=== PATIENT | male | born 1955 | race Caucasian/White ===

== ENCOUNTER 2017-05-30 05:10 | Inpatient (IN) | payer OTHER ==
--- NOTE | 2017-05-05 12:59 | PAT Medication Instructions ---
Service Date May 05, 2017. Current Home Medication List Aspirin (Aspir-Low), 81 MG PO QAM Atorvastatin (Lipitor), 80 MG PO QAM Duloxetine Hcl (Cymbalta), 2 TAB PO QAM Ferrous Sulfate (Iron (Ferrous Sulfate)), Unknown Dose HS Magnesium Oxide (Mag-Ox), Unknown Dose PO HS Metformin Hcl (Glucophage), 1,000 MG PO QAM Metformin Hcl (Glucophage), 500 MG PO QPM Metoprolol Succinate (Toprol Xl), 50 MG PO BID Morphine Cont Rel (Ms Contin), 15 MG PO Q12 Morphine Sulfate Ir (Morphine Sulfate Ir), 15 MG PO Q12H PRN for N Multiple Vitamin (Multivitamin), 1 TAB PO QAM Nitroglycerin (Nitrostat), 0.4 MG UT PRN Pioglitazone (Actos), 45 MG PO QAM Sitagliptin Phosphate (Januvia), 100 MG PO QAM Trandolapril (Mavik), 2 MG PO HS Medication Instructions For Your Scheduled Surgery - Hold the following medications 48 hours prior to surgery: Metformin Hcl (Glucophage), 1,000 MG PO QAM Metformin Hcl (Glucophage), 500 MG PO QPM - Hold the following medications the morning of surgery: Sitagliptin Phosphate (Januvia), 100 MG PO QAM Pioglitazone (Actos), 45 MG PO QAM Multiple Vitamin (Multivitamin), 1 TAB PO QAM - Take the following medications the morning of surgery with a sip of water: Nitroglycerin (Nitrostat), 0.4 MG UT PRN (if needed) Morphine Cont Rel (Ms Contin), 15 MG PO Q12 (okay to take up to 4 hours prior to surgery if needed) Morphine Sulfate Ir (Morphine Sulfate Ir), 15 MG PO Q12H PRN for N (okay to take up to 4 hours prior to surgery if needed) Metoprolol Succinate (Toprol Xl), 50 MG PO BID Duloxetine Hcl (Cymbalta), 2 TAB PO QAM Aspirin (Aspir-Low), 81 MG PO QAM Atorvastatin (Lipitor), 80 MG PO QAM - Hold the following medications as scheduled the night before surgery: Trandolapril (Mavik), 2 MG PO HS - Take the following medications as scheduled the night before surgery: Nitroglycerin (Nitrostat), 0.4 MG UT PRN (if needed) Morphine Cont Rel (Ms Contin), 15 MG PO Q12 (if needed) Morphine Sulfate Ir (Morphine Sulfate Ir), 15 MG PO Q12H PRN for N (if needed) Metoprolol Succinate (Toprol Xl), 50 MG PO BID Ferrous Sulfate (Iron (Ferrous Sulfate)), Unknown Dose HS Magnesium Oxide (Mag-Ox), Unknown Dose PO HS If you have any questions please call us at [phone] or [phone] or [phone]
[2017-05-05 13:49] LABS: BASO % 0.6 %; BASO ABS # 0.03 K/uL (0-0.2); COMPLETE YES; EOS % 10.6 %; LYMPH % 28.6 %; LYMPH ABS # 1.54 K/uL (1.2-3.4); MEAN CELL VOLUME 86.7 fL (80-100); MEAN CORPUSCULAR HEMOGLOBIN 27.2 pg (25-34); MEAN CORPUSCULAR HGB CONC 31.4 g/dl (32-36); MEAN PLATELET VOLUME 9.5 fL (7.4-10.4); MONO % 9.1 %; NEUT % 51.1 %; PLATELET COUNT 223 K/uL (130-400); RED BLOOD COUNT 4.15 M/uL (4.7-6.1); WHITE BLOOD COUNT 5.39 K/uL (4.8-10.8)
[2017-05-05 13:58] LABS: INR 1.1 (0.9-1.1); PROTHROMBIN TIME (PATIENT) 11.4 SECONDS (9.0-12.0)
[2017-05-05 14:06] LABS: URINE APPEARANCE CLEAR (CLEAR); URINE BILIRUBIN NEG (NEG); URINE COLOR DK YELLOW; URINE NITRITE NEG (NEG); URINE SPECIFIC GRAVITY 1.027 (1.000-1.030); UROBILINOGEN NEG (NEG)
[2017-05-05 14:11] LABS: MANUAL MICROSCOPIC REQUIRED? NO; REVIEW REQ? NO
[2017-05-05 14:58] LABS: BUN/CREATININE RATIO 21.3 (10-20); CALCIUM 9.3 mg/dl (8.5-10.1); CREATININE 1.1 mg/dl (0.60-1.40); POTASSIUM 5.5 mmol/L (3.5-5.1)
--- NOTE | 2017-05-29 09:17 | HISTORY & PHYSICAL EXAMINATION ---
DATE OF ADMISSION: 05/30/2017 CHIEF COMPLAINT: Primary osteoarthritis of the left hip. HISTORY OF PRESENT ILLNESS: Robert is a pleasant 62-year-old male who has been complaining of chronic left hip pain. X-rays and clinical examination were diagnostic for primary osteoarthritis of the left hip. He has already had a right total hip arthroplasty done in the past and has done well with that. After failing extensive conservative treatment with the left hip, he has elected to proceed with a left total hip arthroplasty. PAST MEDICAL HISTORY: Significant for heart disease with an [place] in 11/1999. He has problems with the heart valve, hyperlipidemia, heart palpitations, anxiety, [id number] diabetes, chronic pain management. SURGICAL HISTORY: Significant for surgery to his right foot, left total knee arthroplasty, heart bypass surgery x5, knee arthroscopy and a right total hip arthroplasty. ALLERGIES: None. FAMILY HISTORY: Noncontributory. SOCIAL HISTORY: He is once and remarried. He has 2 kids. Never drinks. He is mildly active. REVIEW OF SYSTEMS: He complains of right hip pain. All other pertinent review of systems are negative. MEDICATIONS: Include aspirin 81 mg daily, Lipitor 80 mg daily, Cymbalta 60 mg 2 tabs daily, iron 325 mg at night, magnesium oxide at night, Glucophage 500 mg at night and Glucophage 1000 mg in the morning, Toprol 50 mg twice a day, MS Contin 15 mg q. 12 hours, morphine IR 15 mg as needed, daily multivitamin, Nitrostat 0.4 mg as needed, Actos 45 mg in the morning, Januvia 100 mg daily and Mavik 2 mg at night. PHYSICAL EXAMINATION: GENERAL: He is awake, alert and oriented x3. He is in no apparent distress. He is very pleasant. HEART: Regular rate per radial pulse. LUNGS: Zahida symmetrically bilaterally with no audible breath sounds. ABDOMEN: Soft, nontender, nondistended. MUSCULOSKELETAL: On physical examination of his hip, he walks with an antalgic gait. Can forward flex to 90 degrees but he has decreased motion with internal and external rotation. He has reproducible groin pain, especially with forced internal rotation of the hip. He is otherwise neurovascularly intact. His leg lengths are essentially equal. IMAGING DATA: X-rays of the pelvis do show a well-placed right total hip arthroplasty and advanced osteoarthritis of the left hip. There is joint space narrowing and osteophyte formation. IMPRESSION: Primary osteoarthritis of the left hip. PLAN: We will proceed with an anterior left total hip arthroplasty. Postoperatively, he will be kept in the hospital for postop medical management. We will use aspirin 325 mg twice a day for DVT prophylaxis and morphine for pain control.
[2017-05-30] VITALS (11 sets, daily range): BP systolic 81–144; BP diastolic 27–80; PULSE 49–66; TEMP 36.4–36.6; O2SAT 96–99; Ht 175.3 cm; Wt 92.2 kg
[~2017-05-30] VITALS: Ht 175.3 cm; Wt 92.2 kg
[~2017-05-30 05:10] MED LIST: ACT30 PO; ASPI81TA25 PO; ATOR-26 PO; DULO60CA44 PO; FERR50TA3; GLC/500 PO; MAGN400T6 PO; METO1TAB66 PO; MORP15TA PO; MORP15TA19 PO; MULTTAB58 PO; NITR0.4S UT; SITA100T3 PO; TRAN4TAB PO
[2017-05-30] MEDS ORDERED: CEFAZOLIN 2000 MG/60 ML D5W 60 ML IV SCH (06:00)
[2017-05-30] MEDS ORDERED: GABAPENTIN 300 MG CAP PO SCH (06:00)
[2017-05-30] MEDS ORDERED: ACETAMINOPHEN 500 MG TAB PO SCH (06:00)
[2017-05-30] MEDS ORDERED: ROPIVACAINE 5MG/ML 30 ML 150 MG, BUPIVACAINE/EPINEPHR 0.5% MPF 30 ML, KETOROLAC TROMETH... INFIL SCH ×7 (06:00)
[2017-05-30] MEDS ORDERED: FAMOTIDINE 20 MG TAB PO SCH (06:00)
[2017-05-30] MEDS ORDERED: LACTATED RINGER'S 1000ML 1,000 ML IV SCH ×2 (06:00)
[2017-05-30] MEDS ORDERED: HYDROmorphone INJ 1 MG/ML SYR IV PRN (06:15)
[2017-05-30] MEDS ORDERED: ATROPINE SULFATE 0.1 MG/ML 5ML SYR IV PRN (06:15)
[2017-05-30] MEDS ORDERED: FENTANYL CITRATE INJ 50 MCG/1 ML 2 ML VIAL IV PRN (06:15)
[2017-05-30] MEDS ORDERED: ONDANSETRON INJ 2 MG/ML 2 ML VIAL IV PRN ×2 (06:15→09:30)
[2017-05-30] MEDS ORDERED: ACETAMINOPHEN 1000 MG/100 ML IV IV ONE (06:15)
[2017-05-30] MEDS ORDERED: EpHEDrine SULFATE INJ 50 MG/ML AMP IV PRN (06:15)
[2017-05-30] MEDS: TRANEXAMIC ACID INJ 1,000 MG in SODIUM CHLORIDE 0.9% 100ML 100 ML IV SCH ×2 (06:30→06:42)
[2017-05-30] MEDS ORDERED: ORTHO JOINT ANESTHETIC ONE (06:36)
[2017-05-30] MEDS ORDERED: BACITRACIN 50000 UNIT VIAL ONE (06:36)
[2017-05-30] MEDS ORDERED: BUPIVACAINE 0.5 % 5 MG/1 ML PF 10ML VIAL ONE (06:41)
--- NOTE | 2017-05-30 06:42 | History & Physical Bridge Note ---
H&P Re-Evaluation Bridge Note: I have examined the patient, reviewed the History & Physical and in the interval since the performance of the History & Physical I have noted the following changes of clinical significance: No changes noted
[2017-05-30] MEDS ORDERED: MIDAZOLAM HCL 1 MG/ML 2ML VIAL ONE ×2 (06:43→07:19)
[2017-05-30] MEDS ORDERED: FENTANYL CITRATE INJ 50 MCG/1 ML 2 ML VIAL ONE (06:43)
[2017-05-30] MEDS ORDERED: PROPOFOL IV EMULSION 10 MG/ML 20 ML VIAL IV ONE (08:01)
[2017-05-30] MEDS ORDERED: LIDOCAINE HCL 2% 2 ML VIAL (20MG/ML) ONE (08:01)
[2017-05-30] MEDS ORDERED: EpHEDrine SULFATE 50MG/5ML SYR ONE (08:01)
--- NOTE | 2017-05-30 09:22 | [facility] Post Operative Brief Note ---
Immediate Operative Summary Operative Date May 30, 2017. Pre-Operative Diagnosis Primary Osteoarthritis Left Hip Post-Operative Diagnosis Primary Osteoarthritis Left Hip Procedure(s) Performed Left Anterior Total Hip Arthroplasty--Uncemented Surgeon Dr. Fish Coal Getter Surgeon(s) TERRY Ragsdale Estimated Blood Loss 250 ml Findings as above Specimens A. Left Femoral Head Complication(s) None Disposition Recovery Room / PACU
[2017-05-30] MEDS ORDERED: SILVER SULFADIAZINE 1% CR 50 GM JAR EXT PRN (09:30)
[2017-05-30] MEDS ORDERED: SOD PHOSPHATE/SOD BIPHOSPHATE ENEMA 132 ML BTL PR PRN (09:30)
[2017-05-30] MEDS ORDERED: MAGNESIUM HYDROXIDE SUSP 30 ML UDC PO PRN (09:30)
[2017-05-30] MEDS ORDERED: GLUCOSE 10 TABS/TUBE PO PRN (09:30)
[2017-05-30] MEDS ORDERED: DEXTROSE 50% 50 ML SYR IV PRN (09:30)
[2017-05-30] MEDS ORDERED: MoRPHine SULFATE IR 15 MG TAB (IMMEDIATE RELEASE) PO PRN (09:30)
[2017-05-30] MEDS ORDERED: GLUCAGON FOR INJ 1 MG VIAL SQ PRN (09:30)
[2017-05-30] MEDS ORDERED: GLUCOSE 40% GEL 15 GM TUBE PO PRN (09:30)
[2017-05-30] MEDS ORDERED: BISACODYL 10 MG SUPP PR PRN (09:30)
[2017-05-30] MEDS ORDERED: METOCLOPRAMIDE HCL INJ 5 MG/ML 2 ML VIAL IV PRN (09:30)
[2017-05-30] MEDS ORDERED: NITROGLYCERIN 0.4 MG SL PER TAB CHARGE UT SCH (09:30)
[2017-05-30] MEDS ORDERED: ACETAMINOPHEN IV 1,000 MG in EMPTY BAG 0 ML IV SCH (09:30)
[2017-05-30] MEDS ORDERED: MoRPHine SULFATE 2 MG/ML CARP IV PRN (09:30)
--- NOTE | 2017-05-30 09:54 | DIAGNOSTIC IMAGING REPORT ---
LEFT HIP UNILATERAL 1 VIEW CLINICAL HISTORY: LEFT ANTERIOR HIP hip arthroplasty COMPARISON: None. DISCUSSION: Image intensifier utilized for total left hip arthroplasty expected soft tissue postoperative change IMPRESSION: Total left hip arthroplasty The above report was generated using voice recognition software. It may contain grammatical, syntax or spelling errors. Electronically signed by: Parveen Newton M.D. 05/30/2017 9:53 AM Dictated Date/Time: 05/30/2017 9:52 AM
[2017-05-30] MEDS ORDERED: PHARMACY GLYCEMIC MGMT CONSULT PRN (10:18)
--- NOTE | 2017-05-30 10:35 | DIAGNOSTIC IMAGING REPORT ---
AP PELVIS, CROSSTABLE LATERAL LEFT HIP History: Left total hip arthroplasty. Degenerative arthritis. Postop. FINDINGS: The patient is status post a left total hip arthroplasty. The hardware is intact. No fracture or dislocation. Surgical drains are in place. Prior right total hip arthroplasty. IMPRESSION: Left total hip arthroplasty. No evidence for hardware complication. Electronically signed by: Jose Enrique Sheikh M.D. 05/30/2017 10:33 AM Dictated Date/Time: 05/30/2017 10:32 AM
--- NOTE | 2017-05-30 10:39 | OPERATIVE REPORT ---
DATE OF OPERATION: 05/30/2017 PREOPERATIVE DIAGNOSIS: Primary osteoarthritis of the left hip. POSTOPERATIVE DIAGNOSIS: Same. PROCEDURE: Left total hip arthroplasty. SURGEON: Dr. Andrea Fish. RACK ROOM WORKER: Desmond Silverman PA-C, whose assistance was necessary for retraction and closure. ANESTHESIA: Spinal. COMPLICATIONS: None. CONDITION: Stable to PACU. INDICATIONS: Robert is a pleasant 62-year-old male who presented to my office with complaints of chronic left hip pain. X-rays and clinical examination were diagnostic for primary osteoarthritis of the left hip. After failing conservative treatment, he elected to undergo a left total hip arthroplasty. OPERATION AND FINDINGS: On 05/30/2017, he arrived at [facility] for the above procedure. He was seen in the preoperative holding area and the operative extremity was identified and signed. He was given a preoperative antibiotic and spinal anesthetic, he was taken back to the operating room, laid on table in supine position and put under basic sedation. The left leg was brought out to a Purest leg positioner. Left hip was then prepped and draped in sterile fashion. Timeout was done, and the patient and operative extremity was properly identified. An anterior approach was used. Dissection was taken down through the fascia and the tensor was retracted laterally and the rectus was retracted medially. The capsule was exposed and circumflex vessels were ligated. The capsule was then incised for later repair. The capsule was tagged and the femoral neck was resected and the femoral head was removed. The acetabulum was then exposed. Time was spent doing a complete circumferential labral release. Sequential reaming up to a size 51 reamer was done. A size 52 G7 cup was then impacted into place. Reaming and cup placement was checked under fluoroscopy. A single 20 mm screw was placed, followed by the 36 mm E1 poly liner. Final x-ray was taken, the proximal femur was then exposed. Sequential broaching up to a size 14 broach was used. A high offset trial with a 36 standard neck was used, the hip was reduced and I was happy with the overall alignment. The hip was then dislocated. The final size 14 implant was impacted into place, followed by a size 36 standard ceramic head. The hip was reduced and I was happy with the alignment and the sizing of the components. The surrounding soft tissues were then injected with 100 mL of an orthopedic pain control cocktail. The entire joint was then irrigated with 3 liters of normal saline solution with bacitracin. The capsule was then closed with #1 Vicryl suture. A drain was placed. The fascia was closed with #1 PDS. Skin was closed with 3-0 Vicryl and 0 Prolene suture. A Prineo dressing was placed. He was then taken to the postanesthesia care unit in stable condition, he tolerated the procedure well. IMPLANTS USED: I used a [employer] Taperloc total hip arthroplasty system with a size 14 high offset pressfit stem, a size 52 G7 pressfit cup with a single 20 mm screw and E1 poly liner and a size 36 standard ceramic head. I attest to the content of the Intraoperative Record and any orders documented therein. Any exception s are noted below.
--- NOTE | 2017-05-30 10:47 | Anesthesiology Progress Note ---
Anesthesia Post Op Note Date & Time May 30, 2017 at 10:47 Vital Signs Pain Intensity: 0 Vital Signs Past 12 Hours Date Time Temp Pulse Resp B/P (MAP) Pulse Ox O2 Delivery O2 Flow Rate FiO2 05/30/17 09:30 36 64 18 92/54 100 Mask 10 05/30/17 05:45 36.4 56 18 144/80 98 Room Air Notes Mental Status: alert / awake / arousable, participated in evaluation Pt Amnestic to Procedure: Yes Nausea / Vomiting: adequately controlled Pain: adequately controlled Airway Patency, RR, SpO2: stable & adequate BP & HR: stable & adequate Hydration State: stable & adequate Neuraxial Anesthesia: was administered, sensory block is resolving Anesthetic Complications: no major complications apparent
[2017-05-30] MEDS: INSULIN ASPART 100 UNITS/ML 3 ML PEN SC SCH ×3 (12:30→21:16)
[2017-05-30] MEDS: SODIUM CHLORIDE 0.9% 1000ML 1,000 ML IV SCH ×2 (14:02→20:04)
[2017-05-30] MEDS: ACETAMINOPHEN 500 MG TAB PO SCH ×2 (15:45→21:24)
[2017-05-30] MEDS: KETOROLAC TROMETHAMINE 30 MG/ML VIAL IV. SCH ×2 (15:48→21:24)
[2017-05-30] MEDS: CEFAZOLIN IV 2,000 MG in DEXTROSE 5% 50ML 50 ML IV SCH (15:56)
[2017-05-30] MEDS: MoRPHine SULFATE CR 15 MG TAB (MS CONTIN) PO SCH (20:07)
[2017-05-30] MEDS: ASPIRIN 325 MG ECTAB PO SCH (20:08)
[2017-05-30] MEDS: SENNA 8.6 MG TAB PO SCH (20:08)
[2017-05-30] MEDS: DOCUSATE SODIUM 100 MG CAP PO SCH (20:08)
[2017-05-30] MEDS: METOPROLOL SUCC 50MG EXT REL TAB PO SCH (20:09)
[2017-05-30] MEDS: LISINOPRIL 10 MG TAB PO SCH (20:09)
[2017-05-30] MEDS ORDERED: INSULIN GLARGINE SOLOSTAR 100 UNITS/ML 3 ML PEN SC PRN (21:00)
[2017-05-30] MEDS ORDERED: LANTUS PER UNIT CHARGE SQ PRN ×2 (21:00)
[2017-05-31] VITALS (12 sets, daily range): BP systolic 95–134; BP diastolic 37–81; PULSE 53–71; TEMP 36.6–36.8; O2SAT 94–99
[2017-05-31] MEDS: CEFAZOLIN IV 2,000 MG in DEXTROSE 5% 50ML 50 ML IV SCH (00:16)
[2017-05-31] MEDS ORDERED: INSULIN ASPART 100 UNITS/ML 3 ML PEN SC SCH (02:00)
[2017-05-31] MEDS: KETOROLAC TROMETHAMINE 30 MG/ML VIAL IV. SCH ×4 (04:00→21:26)
[2017-05-31] MEDS: ACETAMINOPHEN 500 MG TAB PO SCH ×3 (05:22→21:28)
[2017-05-31] MEDS: SODIUM CHLORIDE 0.9% 1000ML 1,000 ML IV SCH (05:22)
[2017-05-31 06:59] LABS: BASO % 0.2 %; BASO ABS # 0.02 K/uL (0-0.2); COMPLETE YES; EOS % 2.9 %; IG% 0.3 %; LYMPH % 14.8 %; LYMPH ABS # 1.27 K/uL (1.2-3.4); MEAN CELL VOLUME 85.5 fL (80-100); MEAN CORPUSCULAR HEMOGLOBIN 28.3 pg (25-34); MEAN CORPUSCULAR HGB CONC 33.1 g/dl (32-36); MONO % 11.5 %; NEUT % 70.3 %; PLATELET COUNT 155 K/uL (130-400); RED BLOOD COUNT 3.39 M/uL (4.7-6.1)
[2017-05-31 07:34] LABS: BUN/CREATININE RATIO 23.1 (10-20); CALCIUM 8.2 mg/dl (8.5-10.1); POTASSIUM 4.2 mmol/L (3.5-5.1)
[2017-05-31] MEDS: DULOXETINE HCL 60 MG CAP PO SCH (08:31)
[2017-05-31] MEDS: DOCUSATE SODIUM 100 MG CAP PO SCH ×2 (08:31→21:28)
[2017-05-31] MEDS: ASPIRIN 325 MG ECTAB PO SCH ×2 (08:31→21:27)
[2017-05-31] MEDS: MULTIVITAMIN TAB PO SCH (08:32)
[2017-05-31] MEDS: PANTOprazole SOD 40 MG TAB PO SCH (08:32)
[2017-05-31] MEDS: METOPROLOL SUCC 50MG EXT REL TAB PO SCH ×2 (08:32→21:26)
[2017-05-31] MEDS: MoRPHine SULFATE CR 15 MG TAB (MS CONTIN) PO SCH ×2 (08:32→21:27)
[2017-05-31] MEDS: ATORVASTATIN 40 MG TAB PO SCH (08:32)
[2017-05-31] MEDS: INSULIN ASPART 100 UNITS/ML 3 ML PEN SC SCH ×4 (08:37→21:00)
[2017-05-31] MEDS ORDERED: MULTIVITAMIN TAB PO SCH (09:00)
[2017-05-31] MEDS ORDERED: SITAGLIPTIN 100 MG TAB PO SCH (09:00)
--- NOTE | 2017-05-31 12:32 | PROGRESS NOTE ---
DATE: 05/31/2017 CHIEF COMPLAINT: Status post left total hip arthroplasty, postop day #1. PROGRESS: Robert was seen and examined at bedside today. Overall, he is doing very well. He has had no cardiac events overnight and his pain is controlled, he has been up and ambulating well, has no complaints. PHYSICAL EXAMINATION: LEFT HIP: The dressing is intact and is clean and dry. The drain has been pulled because it came apart last night. He is neurovascularly intact. His leg lengths are equal. LABORATORIES: He has an H and H of 9.6 and 29.0. His glucose is 111. His vital signs are all stable on room air and he is voiding on his own. X-rays postoperatively of the hip showed the prosthesis to be at alignment without any evidence of fracture, dislocation or loosening. IMPRESSION: Status post left total hip arthroplasty, postoperative day #1. PLAN: At this point, he is doing very well. He will continue to get physical therapy today. We will work on pain control today. As long as he is ambulating well and his pain is controlled, we will discharge him to home tomorrow.
[2017-05-31] MEDS: LISINOPRIL 10 MG TAB PO SCH (21:27)
[2017-05-31] MEDS: SENNA 8.6 MG TAB PO SCH (21:27)
[2017-06-01] VITALS: BP 117/52; PULSE 65; TEMP 36.6; O2SAT 94
[2017-06-01 04:00] VITALS: BP 104/60; PULSE 62; TEMP 36.8; O2SAT 96
[2017-06-01] MEDS: KETOROLAC TROMETHAMINE 30 MG/ML VIAL IV. SCH ×2 (04:09→08:44)
[2017-06-01] MEDS: ACETAMINOPHEN 500 MG TAB PO SCH (06:00)
[2017-06-01 07:13] VITALS: BP 107/68; PULSE 66; TEMP 36.8; O2SAT 95
[2017-06-01] MEDS ORDERED: METFORMIN HCL 500 MG TAB PO SCH ×2 (07:30→16:45)
[2017-06-01 08:01] VITALS: O2SAT 97
[2017-06-01] MEDS ORDERED: ASPEC325 PO (08:37)
--- NOTE | 2017-06-01 08:39 | Discharge Instructions ---
Discharge Instructions Date of Service Jun 01, 2017. Admission Reason for Admission: Left Hip Degenerative Joint Disease Discharge Discharge Diagnosis / Problem: Left Total Hip Discharge Goals Goal(s): Decrease discomfort, Improve function Activity Recommendations Activity Limitations: as noted below . Instructions / Follow-Up Instructions / Follow-Up Activity and Therapy Recommendations: * If you are using [facility] then Physical Therapy will be provided until they feel you are ready to start Outpatient Physical Therapy. If you are not using a Home Health agency then Outpatient Physical Therapy should start about 3-5 days from your day of surgery. Therapy will last about 3-6 weeks * You were shown a series of exercises in the hospital. Do these exercises three times each day including the exercises you were shown in physical therapy. * Get up and walk several times each day.~ For the first four weeks, try not to stand or walk for more than one hour at a time. If you do stand or walk for more than one hour, you will not hurt anything, but your leg will likely swell.~ ~ * As you feel comfortable, you may change from the walker or crutches to a cane and~then to independent walking. Medications: * Narcotic You will likely be sent home from the hospital with a prescription for the narcotic pain medication that worked best throughout your stay. * Aspirin Most patients will be required to take Aspirin 325mg twice a day for 6 weeks after surgery. This is obtained [id number] and a prescription is not necessary. * Other medications may be prescribed for specific circumstances. If you have any questions, please call the office at . * Resume previous home medications unless otherwise instructed TEDs/Elastic Stockings: The white elastic stockings help limit swelling and prevent blood clots from forming in your legs. The more you wear them, the more they work. Wear them for six weeks. Dressing Care: You will likely have a Prineo dressing covering your incision. This looks like a glued on clear mesh dressing. Do not remove this dressing until you follow- up in my office in 2-3 weeks. Its pretty hard to peel it off. You may leave the Prineo dressing uncovered or cover it if it is draining a little bit. No further dressing care is required Showering: You may shower 3 days from the day of surgery. Leave the Prineo dressing intact and let the soapy shower water run over it. Do not scrub or soak the dressing or the incision. Things To Watch For: * Drainage from the incision site that occurs more than one week after your surgery. * Increased redness at the incision site. * Fever above 102 degrees Fahrenheit. * Unusual chest pain or shortness of breath. * [facility] at with any of the above problems Follow-Up Visit: Follow-up with Dr. Fish 2-3 weeks after your day of surgery. An appointment was probably scheduled when you signed-up for surgery in the office. If you have any questions call Office Instructions: More detailed instructions as well as Frequently Asked Questions were provided in a folder by our office when you signed-up for surgery. Please review these instructions when you get home. If you have any further questions or concerns, please feel free to call the office at [phone] Current Hospital Diet Patient's current hospital diet: Diabetes Type 2 Diet Discharge Diet Recommended Diet: Diabetes Type 2 Diet Procedures Procedures Performed: Left Anterior Total Hip Arthroplasty--Uncemented Pending Studies Studies pending at discharge: no Medical Emergencies . Who to Call and When: Medical Emergencies: If at any time you feel your situation is an emergency, please call [phone] immediately. . Non-Emergent Contact Non-Emergency issues call your: Surgeon Call Non-Emergent contact if: wound has increased drainage, wound has increased redness . "Provider Documentation" section prepared by Andrea Fish. . VTE Core Measure Inpt VTE Proph given/why not?: Other Anticoagulation (Aspirin 325 twice a day for 6 weeks)
[2017-06-01] MEDS: DOCUSATE SODIUM 100 MG CAP PO SCH (08:43)
[2017-06-01] MEDS: MULTIVITAMIN TAB PO SCH (08:43)
[2017-06-01] MEDS: DULOXETINE HCL 60 MG CAP PO SCH (08:43)
[2017-06-01] MEDS: ASPIRIN 325 MG ECTAB PO SCH (08:43)
[2017-06-01] MEDS: ATORVASTATIN 40 MG TAB PO SCH (08:43)
[2017-06-01] MEDS: PANTOprazole SOD 40 MG TAB PO SCH (08:44)
[2017-06-01] MEDS: MoRPHine SULFATE CR 15 MG TAB (MS CONTIN) PO SCH (08:44)
[2017-06-01] MEDS: METOPROLOL SUCC 50MG EXT REL TAB PO SCH (08:44)
--- NOTE | 2017-06-01 08:54 | PROGRESS NOTE ---
DATE: 06/01/2017 CHIEF COMPLAINT: Status post left total hip arthroplasty, postop day #2. PROGRESS: Robert was seen and examined at bedside today. Overall, he is doing fairly well. He has been up and ambulating a lot. He has a little soreness in his thigh. No other complaints. PHYSICAL EXAMINATION: The incision is clean and dry and the dressing was removed at bedside today. He is neurovascularly intact. VITAL SIGNS: All stable on room air. He is voiding on his own. IMPRESSION: Status post left total hip arthroplasty, postoperative day #2. PLAN: At this point, he is doing well and happy with his progress. He will be seen by physical therapy again this morning and likely discharged to home later this morning with home health.
--- NOTE | 2017-06-01 08:59 | DISCHARGE SUMMARY ---
DISCHARGE DIAGNOSIS: Primary osteoarthritis of the left hip. PROCEDURE: Left total hip arthroplasty on 05/30/[address] Andrea Fish. DISCHARGE INSTRUCTIONS: 1. Aspirin 325 mg twice a day for 6 weeks. 2. Morphine IR 15 mg q. 12h hours as needed for pain. 3. MS Contin 15 mg q. 12 hours. 4. Toprol-XL 50 mg twice a day. 5. Glucophage 500 mg daily. 6. Glucophage 1000 mg in the morning. 7. Magnesium daily. 8. Ferrous sulfate 325 mg daily. 9. Cymbalta 120 mg daily. 10. Lipitor 80 mg daily. 11. Nitrostat as needed. 12. Actos 45 mg daily. 13. Januvia 100 mg daily. 14. Follow up with Dr. Fish in 2 weeks. 15. Call the office of Dr. Fish with any questions or concerns. HOSPITAL COURSE: Robert is a pleasant 62-year-old male who presented to my office with complaints of chronic left hip and groin pain. X-rays and clinical examination were diagnostic for primary osteoarthritis of the left hip. After failing conservative treatment, he elected to undergo a left total hip arthroplasty. On 05/30/2017, he arrived at [facility] and underwent a left hip replacement without complications. Postoperatively, anesthesia requested that he be kept on the telemetry floor. His hospital course was uneventful. On postop day #1, his H and H was stable at 9.6 and 29.0. There were no issues with his heart monitors. He was seen by physical therapy and was able to get up and ambulate. His pain was well controlled and on postop day #1, the drain was pulled. On postop day #2, the dressing was changed. His pain was controlled on the oral pain medication. He continued to work well with physical therapy and he was subsequently discharged to home with home health agency in the above instructions. BRANDEN
[2017-06-01] MEDS ORDERED: SITAGLIPTIN 100 MG TAB PO SCH (09:00)
[2017-06-01 09:12] VITALS: BP 107/68; PULSE 66; TEMP 36.8; O2SAT 97
[2017-06-01] MEDS: INSULIN ASPART 100 UNITS/ML 3 ML PEN SC SCH (09:16)
--- NOTE | 2017-06-01 10:41 | Pharmacy Progress Note ---
Glycemic: Assessment & Plan Date of Service Jun 01, 2017. Assessment & Plan The patient is currently receiving 11 units of insulin per day. BSGs ranging 81 - 117 mg/dl over the past 24hrs. * Basal insulin: Lantus 0 units * Correctional Insulin: Novolog Correction per scale ACHS Goal Range: Low 110 mg/dL - High 140 mg/dL Correction Factor: 30 mg/dL/unit * Prandial insulin: Per carb ratio of 1 unit per 10 grams CHO consumed BSGs continue to improve, patient has demonstrated excellent oral intake and kidney function. Following planned for patient: * restart metformin 1000 mg PO with breakfast and 500 mg PO with dinner * restart Januvia 100 mg PO daily * loosened correction insulin to Novolog correction factor of 45 mg/dL/unit and carbohydrate ratio of 1 unit per every 15 grams of carbohydrates consumed. Pharmacy will continue to monitor patient daily and write orders per [facility] inpatient glycemic control protocol. Thanks. DISCHARGE RECOMMENDATIONS * patient's A1C from February 2017 within goal for patient. Reasonable to continue outpatient regimen. Advise caution with using Actos in individuals with heart disease as this medication can cause fluid retention and precipitate heart failure.
== END 2017-06-01 11:09 | disposition home health service (06) | DRG 470 ==
LOC: C.ACU 05:10 → C.2E 10:09 → ENRESERV 11:57
PROVIDERS: ADMIT Orthopaedic Surgery; ATTEND Orthopaedic Surgery
PROC: 0SRB04A Replacement of Left Hip Joint with Ceramic on Polyethylene Synthetic Substitute, Uncemented, Open Approach (ICD-10-PCS; principal; 2017-05-30 07:00)
DX: M16.12 Unilateral primary osteoarthritis, left hip (principal); E11.9 Type 2 diabetes mellitus without complications; E78.5 Hyperlipidemia, unspecified; F41.9 Anxiety disorder, unspecified; I25.2 Old myocardial infarction; Z79.82 Long term (current) use of aspirin; Z79.899 Other long term (current) drug therapy; Z79.84 Long term (current) use of oral hypoglycemic drugs

== ENCOUNTER 2017-11-20 12:17 | Day surgery (SDC) | payer OTHER ==
[2017-11-18 15:59] VITALS: BMI 31.0
--- NOTE | 2017-11-19 08:24 | History and Physical ---
History & Physical Date Nov 19, 2017. Chief Complaint Patient presents as a 62-year-old white male place of a painful left knee with a hypertrophic scar and arthrofibrosis presents for arthroscopic evaluation with excision of painful hypertrophic scar History of Present Illness The patient is a 62 year old male with complaints of pain for fibrosis of left knee patient presents for knee arthroscopy and excision of a hypertrophic scar Past Medical/Surgical History Medical Problems: (1) Osteoarthritis of knee Additional History Hepatic Disease: No Endocrine Disorder: No Kidney Disease: No Hypertension: Yes Heart Disease: Yes Bleeding Tendencies: No Infectious Diseases: No Allergies Coded Allergies: No Known Allergies (Unverified , 11/18/17) Home Medications Scheduled Aspirin (Aspirin Ec), 81 MG PO QAM Atorvastatin (Lipitor), 80 MG PO QAM Duloxetine Hcl (Cymbalta), 2 TAB PO QAM Metformin Hcl (Glucophage), 1,000 MG PO QAM Metformin Hcl (Glucophage), 500 MG PO QPM Metoprolol Succinate (Toprol Xl), 50 MG PO BID Morphine Cont Rel (Ms Contin), 15 MG PO Q12 Multiple Vitamin (Multivitamin), 1 TAB PO QPM Pioglitazone (Actos), 45 MG PO QAM Sitagliptin Phosphate (Januvia), 100 MG PO QAM Trandolapril (Mavik), 2 MG PO HS [Ferrous Sulfate], 65 MG PO HS [Magnesium], 500 MG PO HS Scheduled PRN Morphine Sulfate Ir (Morphine Sulfate Ir), 15 MG PO Q12H PRN for N Physical Examination Skin: warm/dry, no rash Eyes: normal inspection, EOMI, sclerae normal ENT: normal ENT inspection, pharynx normal Head: normocephalic, atraumatic Neck: supple, no adenopathy, trachea midline Respiratory/Chest: lungs clear, normal breath sounds, no respiratory distress Cardiovascular: + systolic murmur Abdomen / GI: normal bowel sounds, non tender Back: normal inspection Extremities: + pertinent finding (arthrofibrosis) Neurologic/Psych: no motor/sensory deficits, alert, normal reflexes, oriented x 3 Diagnosis Arthrofibrosis left knee plan for arthroscopy arthroscopic excision of hypertrophic scar Plan of Treatment Right fibrosis left knee plan for arthroscopy or scopic excision of hypertrophic scar postoperative pain management DVT prophylaxis and box is necessary
[~2017-11-20] VITALS: Ht 172.7 cm; Wt 91.8 kg
[~2017-11-20 12:17] MED LIST changes: -ASPI81TA25 PO; +ASPI81TA28 PO; +ATROPINE SULFATE 0.1 MG/ML 5ML SYR IV PRN; +EpHEDrine SULFATE INJ 50 MG/ML AMP IV PRN; +FENTANYL CITRATE INJ 50 MCG/1 ML 2 ML VIAL IV PRN; -FERR50TA3; +FERROUS SULFATE PO; +LACTATED RINGER'S 1000ML 1,000 ML IV SCH; -MAGN400T6 PO; +MAGNESIUM PO; +METO-452 PO; -METO1TAB66 PO; +MORP-157 PO; -MORP15TA19 PO; -NITR0.4S UT; +ONDANSETRON INJ 2 MG/ML 2 ML VIAL IV PRN
[2017-11-20 12:46] VITALS: BP 186/84; PULSE 54; TEMP 36.6; O2SAT 97; Ht 172.7 cm; Wt 91.8 kg
[2017-11-20 12:59] LABS: HEMATOCRIT 38.3 % (42-52); HEMOGLOBIN 12.5 g/dL (14.0-18.0); MEAN CELL VOLUME 84.4 fL (80-100); MEAN CORPUSCULAR HEMOGLOBIN 27.5 pg (25-34); MEAN PLATELET VOLUME 9.2 fL (7.4-10.4); PLATELET COUNT 200 K/uL (130-400); RED CELL DISTRIBUTION WIDTH CV 17.7 % (11.5-14.5); RED CELL DISTRIBUTION WIDTH SD 54.6 fL (36.4-46.3); WHITE BLOOD COUNT 4.72 K/uL (4.8-10.8)
[2017-11-20] MEDS ORDERED: FENTANYL CITRATE INJ 50 MCG/1 ML 2 ML VIAL ONE (13:13)
[2017-11-20] MEDS ORDERED: MIDAZOLAM HCL 1 MG/ML 2ML VIAL ONE (13:13)
[2017-11-20] MEDS ORDERED: PROPOFOL IV EMULSION 10 MG/ML 20 ML VIAL IV ONE (13:13)
[2017-11-20] MEDS ORDERED: LIDOCAINE HCL 2% 2 ML VIAL (20MG/ML) ONE (13:13)
[2017-11-20] MEDS ORDERED: DEXAMETHASONE SOD INJ 4 MG/ML VIAL ONE (13:13)
[2017-11-20] MEDS ORDERED: ONDANSETRON INJ 2 MG/ML 2 ML VIAL ONE (13:13)
[2017-11-20 13:21] LABS: CALCIUM 8.9 mg/dl (8.5-10.1); CREATININE 1.14 mg/dl (0.60-1.40)
[2017-11-20] MEDS ORDERED: HYDR-5688 PO (13:26)
[2017-11-20 13:28] LABS: MEAN CORPUSCULAR HGB CONC 32.6 g/dl (32-36)
--- NOTE | 2017-11-20 13:30 | Discharge Instructions ---
Discharge Instructions Date of Service Nov 20, 2017. Visit Reason for Visit: Left Knee Ankylosis Discharge Discharge Diagnosis / Problem: left knee synovectomy Discharge Goals Goal(s): Decrease discomfort, Improve function, Increase independence Activity Recommendations Activity Limitations: as noted below Weightbearing Status: Left weightbearing (as tolerated) Anesthesia . Post Anesthesia Instructions: If you have had General Anesthesia or IV Sedation: * Do not drive today. * Resume driving when surgeon permits. * Do not make important decisions or sign legal documents today. * Call surgeon for: 1. Temperature elevations greater than 101 degrees F. 2. Uncontrollable pain. 3. Excessive bleeding. 4. Persistent nausea and vomiting. 5. Medication intolerance (nausea, vomiting or rash). * For nausea and vomiting use only clear liquids such as: tea, soda, bouillon until nausea subsides, then gradually increase diet as tolerated. * If you have any concerns or questions, call your surgeon's office. If physician is unavailable and it is an emergency, call 911 or go to the nearest emergency room. . Instructions / Follow-Up Instructions / Follow-Up ACTIVITY RECOMMENDATIONS: * You may walk on the leg with or without crutches as comfort permits. * Bending of the knee should start at once. * Do not shower for 48 hours following surgery. SPECIAL CARE INSTRUCTIONS: * You may cleanse the skin adjacent to the small wounds with soap and water at the time of the first dressing change. * The application of an ice bag to the front and sides of the knee will decrease swelling and discomfort for the first 48 hours. * The small incisions may be sore and develop bruising. This bruising does not require any special care. SPECIAL PRECAUTIONS: * If you experience unusual pain unrelieved by prescriptions, temperature elevation (100 degrees F. or above) or progressive swelling or bleeding, you should contact our office at for further evaluation. * You may have been prescribed pain medication. If you experience nausea and/or fine skin rash, discontinue this medication and contact our office at for an alternate medication. DRESSING: * Dressing should be comfortable and absorb any leakage of fluid and/or blood. * The dressing may become moist or bloodstained. * Dressing may be removed _24 hours_ after surgery and bandaids placed over the small surgical incisions. If can be removed sooner if it becomes very soiled or loose. * Bandaids may be used over next several days as needed and can be discontinued when there is not further drainage from the wounds. FOLLOW UP VISIT: If appointment is not already scheduled: Please call [facility] to make a follow-up appointment for your surgery at . Diet Recommendations Recommended Home Diet: resume previous diet Pending Studies Studies pending at discharge: no Medical Emergencies . Who to Call and When: Medical Emergencies: If at any time you feel your situation is an emergency, please call 911 immediately. . Non-Emergent Contact Non-Emergency issues call your: Primary Care Provider, Surgeon . . "Provider Documentation" section prepared by Parveen Mccullough. . [place] Drug Monitoring Program Search Results: patient reviewed within database, no issues identified
[2017-11-20] MEDS ORDERED: SODIUM CHLORIDE 0.9% 1000ML 1,000 ML IV SCH (13:33)
[2017-11-20] MEDS ORDERED: ONDANSETRON INJ 2 MG/ML 2 ML VIAL IV PRN ×2 (13:45→14:00)
[2017-11-20] MEDS ORDERED: HYDROCODONE/ACETAMIN 5/325MG TAB PO PRN ×2 (13:45)
[2017-11-20] MEDS ORDERED: PROMETHAZINE HCL INJ 12.5 MG in SODIUM CHLORIDE 0.9% 50ML 50 ML IV PRN (14:00)
[2017-11-20] MEDS ORDERED: LABETALOL HCL IV 5 MG/ML 20ML IV PRN (14:00)
[2017-11-20] MEDS ORDERED: NALOXONE HCL 0.4 MG/1 ML VIAL/CARP IV PRN (14:00)
[2017-11-20] MEDS ORDERED: HYDROmorphone INJ 0.5 MG/0.5 ML SYR IV PRN (14:00)
[2017-11-20] MEDS ORDERED: EpHEDrine SULFATE INJ 50 MG/ML AMP IV PRN (14:00)
[2017-11-20] MEDS ORDERED: ATROPINE SULFATE 0.1 MG/ML 5ML SYR IV PRN (14:00)
[2017-11-20] MEDS ORDERED: FLUMAZENIL 0.1 MG/1 ML 10 ML VIAL IV PRN (14:00)
[2017-11-20] MEDS ORDERED: CEFAZOLIN SOD 1 GM VIAL ONE (14:09)
[2017-11-20] MEDS ORDERED: EpHEDrine SULFATE 50MG/5ML SYR ONE (14:23)
[2017-11-20] MEDS ORDERED: GLYCOPYRROLATE INJ 0.2 MG/ML VIAL ONE (14:33)
--- NOTE | 2017-11-20 14:45 | [facility] Post Operative Brief Note ---
Immediate Operative Summary Operative Date Nov 20, 2017. Pre-Operative Diagnosis Hypertrophic scar lt knee Post-Operative Diagnosis hypertrophic scar lt knee Procedure(s) Performed knee arthroscopy with excision of hypertrophic scar Surgeon saeid Captain'S Assistant Surgeon(s) none Estimated Blood Loss 10cc Findings Consistent with Post-Op Diagnosis Specimens none Drains None Anesthesia Type General Complication(s) none Disposition Disposition: Recovery Room / PACU
--- NOTE | 2017-11-20 14:48 | [facility] Operative Report ---
Operative Report Operative Date Nov 20, 2017. 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 with scar around the suprapatellar tendon medial lateral gutters been Nourse wants to conservative therapy including physical therapy anti-inflammatories relative rest activity modification and time and presents fluoroscopic evaluation Specimens none Drains None Anesthesia Type General Complication(s) none Disposition Recovery Room / PACU Indications Patient's failed attempts at conservative management including physical therapy relative rest activity modification and anti-inflammatories as well as a topical nonsteroidal anti-inflammatory cream presents for scopic evaluation of his left fibrotic knee Description of Procedure After proper prepping draping left lower extremity medial lateral parapatellar portals were created or scopic examination beginning region of the anterior compartment for the evidence of markedly thickened hypertrophic well-organized scar rather patellofemoral joint impinging upon patellofemoral mechanics as well as both medial lateral gutters socially utilizing sutures of 4.5 incisor blades 5.5 incisor blade as well as a radiofrequency wand the needle lateral gutters were cleaned back to stable margin if patellar hypertrophic scar was excised entirety meticulous hemostasis was obtained and maintained all times after thorough irrigation debridement lavage and plans were evaluated and cemented femoral tibial loosening poly-delamination or wear was noted the implants were otherwise in pristine condition socially have informed thorough complete arthroscopic evaluation with excision of hypertrophic scar tricompartmentally skin was closed with 4-0 nylon in mattress fashion injection of 20 mL of 1% Marcaine with epinephrine was injected patient was taken recovery room after sterile compression dressing placed up report dictated by Saeid. I attest to the content of the Intraoperative Record and any orders documented therein. Any exceptions are noted below.
[2017-11-20] MEDS: BUPIVACAINE/EPINEPHRINE 0.5% MPF 1:200,000 30 ML VIAL ONE ×2 (14:58→14:59)
--- NOTE | 2017-11-20 15:26 | Anesthesiology Progress Note ---
Anesthesia Post Op Note Date & Time Nov 20, 2017 at 15:26 Vital Signs Pain Intensity: 1 Vital Signs Past 12 Hours Date Time Temp Pulse Resp B/P (MAP) Pulse Ox O2 Delivery O2 Flow Rate FiO2 11/20/17 15:25 36.5 57 15 11/20/17 15:25 56 15 99 11/20/17 15:21 138/61 11/20/17 15:20 53 27 11/20/17 15:20 57 27 100 11/20/17 15:16 133/56 11/20/17 15:15 54 30 11/20/17 15:15 60 30 100 11/20/17 15:11 131/41 11/20/17 15:10 57 14 100 11/20/17 15:10 57 14 11/20/17 15:06 127/54 11/20/17 15:05 56 13 100 11/20/17 15:05 56 13 11/20/17 15:01 95/65 11/20/17 15:00 59 25 100 11/20/17 15:00 61 25 11/20/17 14:57 128/67 11/20/17 14:45 36.4 58 16 153/74 98 Oxymask 7 11/20/17 12:46 36.6 54 16 186/84 (118) 97 Room Air Notes Mental Status: alert / awake / arousable, participated in evaluation Pt Amnestic to Procedure: Yes Nausea / Vomiting: adequately controlled Pain: adequately controlled Airway Patency, RR, SpO2: stable & adequate BP & HR: stable & adequate Hydration State: stable & adequate Anesthetic Complications: no major complications apparent
[2017-11-20 15:30] VITALS: BP 142/63; PULSE 61; TEMP 36.5; O2SAT 92
[2017-11-20 16:05] VITALS: BP 126/58; PULSE 61; TEMP 36.7; O2SAT 96
== END 2017-11-20 16:16 | disposition home or self-care (01) ==
LOC: C.ACU 12:17
PROVIDERS: ATTEND Orthopaedic Surgery
DX: L91.0 Hypertrophic scar (principal); I25.10 Atherosclerotic heart disease of native coronary artery without angina pectoris; I10 Essential (primary) hypertension; M17.12 Unilateral primary osteoarthritis, left knee; Z95.1 Presence of aortocoronary bypass graft; Z79.82 Long term (current) use of aspirin